=== PATIENT | female | born 2000 | race American Indian/Alaskan Native ===

== ENCOUNTER 2021-02-19 16:31 | Emergency (ER) | payer SELFPAY ==
[2021-02-19 17:06] VITALS: BP 151/99
[2021-02-19] MEDS ORDERED: ACETAMINOPHEN 325 MG TAB PO ONE (19:15)
--- NOTE | 2021-02-19 19:22 | Emergency Department Report ---
- General Chief Complaint: Upper Respiratory Infection Stated Complaint: COVID S/S Time Seen by Provider: 02/19/21 18:31 Source: patient Mode of arrival: Ambulatory Limitations: No Limitations - History of Present Illness Initial Comments: 20-year-old female with HPLD presents to the ER today with complaints of flulike symptoms. Patient states that symptoms started last week . She reports chest congestion, with productive cough, nasal congestion, rhinorrhea, sore throat, chills, headache, diarrhea and mild vomiting. She states that she has been having "hot flashes" but no apparent fever she states that her taste and smell are fine. She denies any ill contacts or recent travel. She has not taken any outpatient COVID-19 test since her symptoms started. She has not received any of the vaccines. She reports no abdominal pain, UTI symptoms, or any additional symptoms at this time MD Complaint: cough, sore throat, rhinorrhea, nasal congestion -: Gradual - Related Data Previous Rx's Medication Instructions Recorded Last Taken Type Benzonatate [Tessalon Perles] 100 mg PO Q8HR PRN #30 capsule 02/19/21 Unknown Rx Fluticasone [Flonase] 2 spray NS QDAY #1 bottle 02/19/21 Unknown Rx Loratadine [Claritin] 10 mg PO DAILY #30 tablet 02/19/21 Unknown Rx Allergies Allergy/AdvReac Type Severity Reaction Status Date / Time No Known Allergies Allergy Unverified 02/19/21 17:06 ED Review of Systems ROS: Stated complaint: COVID S/S Other details as noted in HPI Comment: All other systems reviewed and negative Constitutional: chills Eyes: denies: eye pain, eye discharge, vision change ENT: throat pain, congestion, other (rhinorrhea ). denies: ear pain, dental pain, hearing loss, epistaxis Respiratory: cough. denies: shortness of breath, SOB with exertion, SOB at rest, wheezing Cardiovascular: denies: chest pain, palpitations Gastrointestinal: vomiting, diarrhea. denies: abdominal pain, nausea, constipation, hematemesis, hematochezia Genitourinary: denies: urgency, dysuria, frequency, hematuria, discharge, abnormal menses, dyspareunia Musculoskeletal: denies: back pain, joint swelling, arthralgia Skin: denies: rash, lesions Neurological: denies: headache, weakness, numbness, paresthesias, confusion, abnormal gait, vertigo Psychiatric: denies: anxiety, depression, auditory hallucinations, visual hallucinations, homicidal thoughts, suicidal thoughts Hematological/Lymphatic: denies: easy bleeding, easy bruising, swollen glands ED Past Medical Hx - Medications Home Medications: Home Medications Medication Instructions Recorded Confirmed Last Taken Type Benzonatate [Tessalon Perles] 100 mg PO Q8HR PRN #30 capsule 02/19/21 Unknown Rx Fluticasone [Flonase] 2 spray NS QDAY #1 bottle 02/19/21 Unknown Rx Loratadine [Claritin] 10 mg PO DAILY #30 tablet 02/19/21 Unknown Rx ED Physical Exam - General Limitations: No Limitations General appearance: alert, in no apparent distress - Head Head exam: Present: atraumatic, normocephalic, normal inspection - Eye Eye exam: Present: normal appearance, PERRL, EOMI Pupils: Present: normal accommodation - ENT ENT exam: Present: normal exam, mucous membranes moist - Neck Neck exam: Present: normal inspection, full ROM. Absent: meningismus - Respiratory Respiratory exam: Present: normal lung sounds bilaterally. Absent: respiratory distress, wheezes, rales, rhonchi, stridor, chest wall tenderness, accessory muscle use, decreased breath sounds, prolonged expiratory - Cardiovascular Cardiovascular Exam: Present: regular rate, normal rhythm, normal heart sounds - GI/Abdominal GI/Abdominal exam: Present: soft. Absent: distended, tenderness, guarding, rebound - Neurological Exam Neurological exam: Present: alert, oriented X3, CN II-XII intact, normal gait - Psychiatric Psychiatric exam: Present: normal affect, normal mood - Skin Skin exam: Present: intact ED Course Vital Signs 02/19/21 17:02 Temperature 99.4 F Pulse Rate 82 Respiratory 16 Rate Blood Pressure 151/99 [Right] O2 Sat by Pulse 99 Oximetry ED Medical Decision Making - Radiology Data Radiology results: report reviewed Patient: CORI DAVID MR#: [id number] : 2000 Acct:[id number] Age/Sex: 20 / F ADM Date: 02/19/21 Loc: ED Attending Dr: Ordering Physician: LINDA CARDENAS Date of Service: 02/19/21 Procedure(s): XR chest routine 2V Accession Number(s): [id number] cc: LINDA CARDENAS Larry Time In Minutes: CHEST 2 VIEWS INDICATION / CLINICAL INFORMATION: Cough/chest congestion. COMPARISON: None available. FINDINGS: SUPPORT DEVICES: None. HEART / MEDIASTINUM: No significant abnormality. LUNGS / PLEURA: No significant pulmonary or pleural abnormality. No pneumothorax. ADDITIONAL FINDINGS: No significant additional findings. IMPRESSION: 1. No acute findings. Signer Name: Alex Perez MD Signed: 02/19/2021 8:06 PM Workstation Name: [id number] Transcribed By: CATHERINE Dictated By: ANDRES PEREZ MD Electronically Authenticated By: ANDRES PEREZ MD Signed Date/Time: 02/19/212005 DD/ 04 TD/TT: - Medical Decision Making Rapid strep/rapid flu and cxr negative for anything acute. Pt symptoms probably related to a nonspecific viral illness but I still recommend that she get an outpatient COVID-19 test. Currently patient is not toxic or ill-appearing and she is neurologically intact. She does not appear septic. Her vital signs are stable. She is not in any acute pain or respiratory distress. She has a soft nontender abdomen. She has no meningeal signs on exam. Discussed suspected dx and treatment plan with patient. Patient was stable at time of discharge. Critical care attestation.: If time is entered above; I have spent that time in minutes in the direct care of this critically ill patient, excluding procedure time. ED Disposition Clinical Impression: Viral illness Disposition: HOME / SELF CARE / HOMELESS Is pt being admited?: No Does the pt Need Aspirin: No Condition: Stable Instructions: Viral Illness, Adult Additional Instructions: I recommend taking the tessalon perles as prescribed for cough as well as the claritin and flonase. You can take motrin and alternate it with tylenol. I do recommend getting out patient COVID 19 test as this could also be cause of your symptoms. You should quarantine until you get the result of your test. Drink lots of fluids. Take multivitamin. Follow up with PCP. Return to ED if worse. Prescriptions: Loratadine [Claritin] 10 mg PO DAILY #30 tablet Fluticasone [Flonase] 2 spray NS QDAY #1 bottle Benzonatate [Tessalon Perles] 100 mg PO Q8HR PRN #30 capsule PRN Reason: Cough Referrals: RADHAMES CARRION MD [Staff Physician] - 3-5 Days Forms: Work/School Release Form(ED) Time of Disposition: 20:23
--- NOTE | 2021-02-19 20:10 | XRay Report ---
CHEST 2 VIEWS INDICATION / CLINICAL INFORMATION: Cough/chest congestion. COMPARISON: None available. FINDINGS: SUPPORT DEVICES: None. HEART / MEDIASTINUM: No significant abnormality. LUNGS / PLEURA: No significant pulmonary or pleural abnormality. No pneumothorax. ADDITIONAL FINDINGS: No significant additional findings. IMPRESSION: 1. No acute findings. Signer Name: Alex Perez MD Signed: 02/19/2021 8:06 PM Workstation Name: [id number]
== END 2021-02-20 06:03 | disposition home or self-care (01) ==
LOC: EDBD → ED 16:31
DX: B34.9 Viral infection, unspecified (principal); J02.9 Acute pharyngitis, unspecified
CPT/HCPCS: 71046; 87116; 87400; 87430; 99283